=== PATIENT | male | born 1995 | race Caucasian/White ===

== ENCOUNTER 2016-11-18 16:20 | Emergency (ER) | payer BC ==
[~2016-11-18] VITALS: Ht 180.3 cm; Wt 68.0 kg
[2016-11-18 17:58] VITALS: BP 129/85
== END 2016-11-18 17:58 | disposition home or self-care (01) ==
LOC: ER 16:20
DX: S61.210A Laceration without foreign body of right index finger without damage to nail, initial encounter (principal); W26.8XXA Contact with other sharp object(s), not elsewhere classified, initial encounter; Y93.G1 Activity, food preparation and clean up; Y92.89 Other specified places as the place of occurrence of the external cause; Y99.8 Other external cause status